=== PATIENT | male | born 1985 | race African-American/Black ===

== ENCOUNTER 2018-11-19 02:02 | Emergency (ER) | payer SELFPAY ==
[2018-11-19] MEDS ORDERED: IBUPROFEN 600 MG TABLET (FP) PO ONE (02:57)
--- NOTE | 2018-11-19 02:57 | PDOC ---
Attending Attestation - Resident Resident Name: FranciscaJenny - ED Attending Attestation I have performed the following: I have examined & evaluated the patient, The case was reviewed & discussed with the resident, I agree w/resident's findings & plan, Exceptions are as noted - HPI HPI: 11/19/18 04:10 32M denies pmh here with R thumb px after FOOSH. Pt broke his fall with out stretched RUE - Physicial Exam PE: 11/19/18 07:18 Agree with exam as documented by resident - Medical Decision Making 11/19/18 04:11 Eval for msk injury, fracture/dislocation XR equivocal thumb spica splint f/u ortho
[2018-11-19 03:07] VITALS: BP 136/74; PULSE 88; TEMP 97.6; BMI 30.7
--- NOTE | 2018-11-19 03:54 | PDOC ---
History of Present Illness - General Chief Complaint: Injury Stated Complaint: PAIN,RT THUMB Time Seen by Provider: 11/19/18 02:26 History Source: Patient Exam Limitations: No Limitations - History of Present Illness Initial Comments: 11/19/18 03:48 32yo M with no significant PMH presenting to ED with complaints of R thumb pain s/p fall. Pt states he tripped and broke his fall by placing his R arm back with hand on the ground but states the weight was mainly on his R thumb. He did not hear any popping or cracking sound. He has had significant pain and swelling in the R thumb with decreased ability to move the thumb. He denies numbness/tingling, pain with wrist motion, inability to move other digits. Past History - Past Medical History Allergies/Adverse Reactions: Allergies Allergy/AdvReac Type Severity Reaction Status Date / Time No Known Allergies Allergy Verified 11/19/18 03:00 Home Medications: Ambulatory Orders Ibuprofen [Motrin -] 600 mg PO TID #21 tablet 11/19/18 COPD: No - Immunization History Immunization Up to Date: Yes - Suicide/Smoking/Psychosocial Hx Smoking History: Never smoked Have you smoked in the past 12 months: No Information on smoking cessation initiated: No Hx Alcohol Use: No Drug/Substance Use Hx: No Review of Systems - Review of Systems Constitutional: No: Symptoms Reported HEENTM: No: Symptoms Reported Respiratory: No: Symptoms reported Cardiac (ROS): No: Symptoms Reported ABD/GI: No: Symptoms Reported : No: Symptoms Reported Musculoskeletal: Yes: See HPI Integumentary: No: Symptoms Reported Neurological: No: Symptoms reported *Physical Exam - Vital Signs Last Vital Signs Temp Pulse Resp BP Pulse Ox 97.6 F 88 20 136/74 99 11/19/18 02:10 11/19/18 02:10 11/19/18 02:10 11/19/18 02:10 11/19/18 02:10 - Physical Exam General Appearance: Yes: Nourished, Appropriately Dressed. No: Apparent Distress HEENT: positive: EOMI, IBETH Neck: positive: Trachea midline, Supple Respiratory/Chest: positive: Lungs Clear, Normal Breath Sounds Comments:: 11/19/18 04:39 radial pulses 2+ Musculoskeletal: positive: Decreased Range of Motion (of R thumb). negative: CVA Tenderness Extremity: positive: Normal Capillary Refill. negative: Coldness, Cyanosis Integumentary: positive: Normal Color, Dry, Warm, Swelling (R thenar compartment , tense). negative: Erythema, Jaundice, Ecchymosis, Bruising Neurologic: positive: claims administrator II-XII NML intact, Fully Oriented, Alert, Normal Mood/ Affect, Normal Response, Motor Strength 5/5. negative: Sensory Deficit Procedures - Splinting Splint Location: Right: Finger Hand-Made Type: fiberglass Splint Type: Yes: Thumb Spica Post-Proc Neuro Vasc Exam: normal Tato Bandage: yes, 3" Complications: No Post splint xray: No ED Treatment Course - RADIOLOGY Radiology Studies Ordered: Category Date Time Status WRIST W/HAND-RIGHT* [RAD] Stat Radiology 11/19/18 02:57 Taken - Medications Given in the ED: ED Medications Discontinued Medications Generic Name Dose Route Start Last Admin Trade Name Freq PRN Reason Stop Dose Admin Ibuprofen 600 mg 11/19/18 02:57 11/19/18 03:02 Motrin - PO 11/19/18 02:58 600 mg ONCE ONE Administration Medical Decision Making - Medical Decision Making 11/19/18 04:36 32yo M with no significant PMH presenting to ED with complaints of R thumb pain s/p fall. Pt states he tripped and broke his fall by placing his R arm back with hand on the ground but states the weight was mainly on his R thumb. He did not hear any popping or cracking sound. He has had significant pain and swelling in the R thumb with decreased ability to move the thumb. He denies numbness/tingling, pain with wrist motion, inability to move other digits. Vitals: wnl PE: R thenar compartment swelling, limited active and passive ROM of R thumb , full rom of other digits, wrist. No lacerations or other signs of trauma, pulses palpable, sensation intact. No snuffbox tenderness. ddx includes but not limited to fracture, dislocation, compartment syndrome, sprain. -xray -motrin xray does not show obvious fracture. soft tissue swelling. Pt reports pain relief with motrin. Will place in thumb spica and give ortho referral. See procedure note. Pt feeling better, given referral and rx for motrin to pharmacy. safe for dc home. given return precautions. *DC/Admit/Observation/Transfer Diagnosis at time of Disposition: Thumb injury Qualifiers: Encounter type: initial encounter Laterality: right Qualified Code(s): S69.91XA - Unspecified injury of right wrist, hand and finger(s), initial encounter - Discharge Dispostion Disposition: HOME Condition at time of disposition: Good Decision to Admit order: No - Prescriptions Prescriptions: Ibuprofen [Motrin -] 600 mg PO TID #21 tablet - Referrals Referrals: Gopi Mcknight DO [Staff Physician] - Ramiro Aguiar DO [Staff Physician] - - Patient Instructions Additional Instructions: You were seen in the emergency room today after falling and injuring your thumb. The xray does not show any obvious fractures but I still recommend following up with an orthopedic doctor. Information is listed below. You have been placed in a splint. Please keep this on until you are seen by an orthopedist. Try to schedule an appointment no later than Thursday. Let them know that you were seen in the emergency room. You can apply ice for the swelling and you can take Tylenol and/or Motrin for the pain as needed. Come back to the emergency room if you have numbness in your fingers, are unable to move your fingers, swelling gets worse, you notice changes in color of your fingers or if any new concerning symptom develops. Thank you - Post Discharge Activity
== END 2018-11-19 04:35 | disposition home or self-care (01) ==
LOC: JER 02:02
PROC: 2W3GX1Z Immobilization of Right Thumb using Splint (ICD-10-PCS; principal; 2018-11-19)
DX: S69.91XA Unspecified injury of right wrist, hand and finger(s), initial encounter (principal); W18.39XA Other fall on same level, initial encounter; Y93.89 Activity, other specified; Y92.89 Other specified places as the place of occurrence of the external cause
CPT/HCPCS: 73110-TC-RT-FY; 73130-TC-RT-FY; 99283-25